=== PATIENT | male | born 2000 | race Caucasian/White ===

== ENCOUNTER 2021-11-19 14:21 | Emergency (ER) | payer OTHER ==
[~2021-11-19] VITALS: Ht 177.8 cm; Wt 90.3 kg
[2021-11-19] MEDS ORDERED: ACETAMINOPHEN 325 MG TAB PO ONE (14:30)
[2021-11-19] MEDS ORDERED: IBUPROFEN 400 MG TAB PO ONE (14:30)
== END 2021-11-19 16:19 | disposition home or self-care (01) ==
LOC: ER 14:45
DX: S16.1XXA Strain of muscle, fascia and tendon at neck level, initial encounter (principal); S00.83XA Contusion of other part of head, initial encounter; S40.012A Contusion of left shoulder, initial encounter; S20.212A Contusion of left front wall of thorax, initial encounter; R51.9 Headache, unspecified; V43.52XA Car driver injured in collision with other type car in traffic accident, initial encounter; Y92.488 Other paved roadways as the place of occurrence of the external cause
CPT/HCPCS: 70450; 71101; 72070; 72110; 72125; 99284